=== PATIENT | male | born 1965 | race Caucasian/White ===

== ENCOUNTER 2017-07-08 06:25 | Emergency (ER) | payer OTHER ==
[~2017-07-08] VITALS: Ht 180.3 cm; Wt 95.3 kg
--- NOTE | 2017-07-08 06:26 | NUR ---
PT [facility] B[facility]. TAKEN TO BED 10
--- NOTE | 2017-07-08 06:26 | NUR ---
PT TRANSFERED FROM [facility] TO ER BED 10 WITHOUT ASSISTANCE.
--- NOTE | 2017-07-08 06:30 | NUR ---
[facility] STATES THEY DELIVERED 1 ALBUTEROL AND 1 ATROVENT BREATHING TX ENROUTE. PT TOLERATED TX WELL.
--- NOTE | 2017-07-08 06:30 | NUR ---
51Y M BIBA C/O SOB WHILE AT HOME W/ DIARRHEA S/P INGESTION OF SALMON AND SPINACH. PT STATES HE HAS 3 EPISODES OF DIARRHEA, NO VOMITING. PT STATES HE IS ALSO HAVING AB PAIN, SUPRAPUBIC RADIATING TO EPIGASTIC AREA. PT AAOX4. MED HX OF ASTHMA;
[2017-07-08 06:33] VITALS: BP 138/86
--- NOTE | 2017-07-08 06:40 | NUR ---
Patient being evaluated by physician at bedside.
--- NOTE | 2017-07-08 06:44 | NUR ---
RT CALLED, EXT [phone] FOR BREATHING TX PER ER MD DR NG.
--- NOTE | 2017-07-08 06:49 | NUR ---
Respiratory Therapist at bedside for respiratory intervention.
[2017-07-08] MEDS ORDERED: predniSONE 20 MG TAB PO ONE (06:50)
[2017-07-08] MEDS ORDERED: ALBUTEROL SULFATE/IPRATROPIU 3 ML SOL IH ONE ×2 (06:50→08:10)
[2017-07-08] MEDS ORDERED: ALBUTEROL 0.083% 2.5 MG/3 ML NEBU INH ONE (06:50)
[2017-07-08] MEDS ORDERED: BUDE1AER IH (06:56)
[2017-07-08] MEDS ORDERED: PRED5TAB7 PO (07:04)
[2017-07-08] MEDS ORDERED: PRED20TA5 PO (07:04)
[2017-07-08] MEDS ORDERED: predniSONE 10 MG TAB ONE (07:08)
--- NOTE | 2017-07-08 07:11 | NUR ---
GAVE REPORT TO LUMA VALENTINE
--- NOTE | 2017-07-08 07:24 | NUR ---
PT EYES CLOSE, FAMILY AT BEDSIDE, NO SOB NOTED, SKIN WARM TO TOUCH RESP. EVEN AND UNLABORED, PER AM NURSE, DR. MARIE WILL SEE PT FIRST AGAIN BEFORE DISCHARGING PT, EXTRA BLANKET GIVEN, PT VITAL SIGN OBTAINED, WILL OBSERVE PT.
--- NOTE | 2017-07-08 07:53 | NUR ---
DR. MARIE AT BEDSIDE
[2017-07-08] MEDS ORDERED: ONDANSETRON 4 MG ODT PO ONE (08:20)
--- NOTE | 2017-07-08 08:21 | NUR ---
INFORMED DR. MARIE PT NAUSEOUS, RT AT BEDSIDE
--- NOTE | 2017-07-08 08:24 | NUR ---
ONGOING WITH BREATHING TREATMENT PER PT HE WILL TAKE THE ZOFRAN AFTER THE BRETAHING TREATMENT.
--- NOTE | 2017-07-08 08:40 | NUR ---
DR. MARIE AT BEDSIDE
[2017-07-08] MEDS ORDERED: NACL 0.9% 1,000 ML IV ONE (08:45)
[2017-07-08] MEDS: MORPHINE SULFATE 2 MG/ML SYR IVP ONE ×2 (08:57→09:01)
--- NOTE | 2017-07-08 09:08 | NUR ---
DR. MARIE AWARE PT REFUSED MORPHINE
[2017-07-08 09:13] LABS: CARBON DIOXIDE 25.5 mmol/L (21-32); CREATININE 1.2 mg/dL (0.7-1.3); POTASSIUM 3.5 mmol/L (3.5-5.1)
[2017-07-08 09:19] LABS: ALBUMIN 3.7 g/dL (3.4-5.0)
--- NOTE | 2017-07-08 09:19 | NUR ---
PT EYES CLOSE,MORE RELAX,IVF ONGOING WELL TOLERATED, WAITING FOR RESULT OF LAB WORKS
[2017-07-08 09:21] LABS: BASOPHILS # (AUTO) 0.2 K/uL (0.00-0.22); BASOPHILS % (AUTO) 1.7 % (0.0-2.0); EOSINOPHILS # (AUTO) 0.3 K/uL (0-0.4); EOSINOPHILS % (AUTO) 2.4 % (0.0-4.0); HEMATOCRIT 46.4 % (36-52); HEMOGLOBIN 15.5 g/dL (12.0-18.0); LYMPHOCYTES # (AUTO) 0.8 K/uL (2.0-11.5); LYMPHOCYTES % (AUTO) 5.7 % (20.5-51.1); MEAN CORPUSCULAR HEMOGLOBIN 31 pg (27-31); MEAN CORPUSCULAR HGB CONC 33 g/dL (33-37); MEAN CORPUSCULAR VOLUME 92 fL (80-94); MONOCYTES # (AUTO) 1.4 K/uL (0.8-1.0); MONOCYTES % (AUTO) 10.3 % (1.7-9.3); NEUTROPHILS # (AUTO) 10.9 K/uL (1.8-7.7); NEUTROPHILS % (AUTO) 79.9 % (42.2-75.2); PLATELET COUNT (AUTO) 179 K/uL (140-450); RED BLOOD CELL COUNT(AUTO) 5.05 MIL/uL (4.20-6.10); RED CELL DISTRIBUTION WIDTH 12.7 % (11.6-13.7)
[2017-07-08 09:32] LABS: WHITE BLOOD COUNT (AUTO) 13.6 K/uL (4.8-10.8)
--- NOTE | 2017-07-08 09:35 | NUR ---
WILL INFORM PT TEMP 101, PT REFUSED BLANKET TO BE REMOVED
[2017-07-08] MEDS ORDERED: ACETAMINOPHEN EXTRA STRENGTH 500 MG TAB PO ONE (10:20)
[2017-07-08 10:42] VITALS: BP 111/64
--- NOTE | 2017-07-08 10:43 | NUR ---
Patient discharged with v/s stable. Written and verbal after care instructions given and explained. Patient alert, oriented and verbalized understanding of instructions. Ambulatory with steady gait. All questions addressed prior to discharge. ID band removed. Patient advised to follow up with PMD. Rx of zofran and albuterol given. Patient educated on indication of medication including possible reaction and side effects. Opportunity to ask questions provided and answered.encouraged fluid intake and pt agreed with it.
== END 2017-07-08 10:43 | disposition home or self-care (01) ==
LOC: MED 06:25
DX: J45.901 Unspecified asthma with (acute) exacerbation (principal); Z88.8 Allergy status to other drugs, medicaments and biological substances
CPT/HCPCS: 36415; 80053; 85025; 87804; 94640; 96360; 99284; J7030; J7512; J7613; J7620; S0119; J2270

== ENCOUNTER 2017-10-06 20:23 | Emergency (ER) | payer OTHER ==
[~2017-10-06] VITALS: Ht 180.3 cm; Wt 103.4 kg
[~2017-10-06 20:23] MED LIST: BUDE1AER IH; PRED20TA5 PO; PRED5TAB7 PO
[2017-10-06 20:27] VITALS: BP 166/92
--- NOTE | 2017-10-06 20:31 | NUR ---
PT AMBULATED TO CHAIR E
--- NOTE | 2017-10-06 20:37 | NUR ---
PATIENT PRESENTS TO ED WITH C/O LEFT INDEX FINGER PAIN, JAMMED AT TIP OF KNUCKLE. DENIES N/V/D; AAOX4 WITH EVEN AND STEADY GAIT; LUNGS CLEAR BL; HR EVEN AND REGULAR; PT DENIES ANY FEVER, CP, SOB, OR COUGH AT THIS TIME; PATIENT POSITIONED FOR COMFORT; HOB ELEVATED; BEDRAILS UP X2; BED DOWN. ER MD MADE AWARE OF PT STATUS.
[2017-10-06 22:08] VITALS: BP 142/93
== END 2017-10-06 22:08 | disposition home or self-care (01) ==
LOC: MED 20:23
DX: M20.012 Mallet finger of left finger(s) (principal)
CPT/HCPCS: 73130; 99284